=== PATIENT | female | born 1990 | race African-American/Black ===

== ENCOUNTER 2017-06-22 22:47 | Emergency (ER) | payer MEDICAID ==
[2017-06-22 23:12] VITALS: BP 146/86
[2017-06-23] MEDS ORDERED: HYDROXYZINE PAMOATE 50 MG CAPSULE PO ONE (00:30)
--- NOTE | 2017-06-23 00:37 | ER Document Report ---
ED General - General Chief Complaint: Anxiety Stated Complaint: SHORTNESS OF BREATH AND CHEST PAIN Time Seen by Provider: 06/22/17 23:41 TRAVEL OUTSIDE OF THE [place] IN LAST 30 DAYS: No - HPI Patient complains to provider of: Anxiety Notes: Patient states for the last month diagnosed with anxiety is followed up with primary care physician one time currently is not on any medication or she seen any therapy for it. Patient states more likely anxiety is probably stress induced. Patient states occurs random times tonight watch TV when she became short of breath achiness in her chest. Patient states similar to episodes before however symptoms little bit more intense. Patient denies any fever chills nausea vomiting diarrhea. Upon my evaluation patient is sitting very comfortably. Vital signs do look to be stable. Denies any other past medical history. - Related Data Allergies/Adverse Reactions: No Known Allergies Allergy (Unverified 06/22/17 23:12) Past Medical History - Social History Smoking Status: Unknown if Ever Smoked Family History: Reviewed & Not Pertinent Patient has suicidal ideation: No Patient has homicidal ideation: No Renal/ Medical History: Denies: Hx Peritoneal Dialysis Review of Systems - Review of Systems Constitutional: No symptoms reported EENT: No symptoms reported Cardiovascular: No symptoms reported Respiratory: No symptoms reported Gastrointestinal: No symptoms reported Genitourinary: No symptoms reported Female Genitourinary: No symptoms reported Musculoskeletal: No symptoms reported Skin: No symptoms reported Hematologic/Lymphatic: No symptoms reported Neurological/Psychological: Other - Anxiety -: Yes All other systems reviewed and negative Physical Exam - Vital signs Vitals: Temp Pulse Resp BP Pulse Ox 97.3 F 89 18 146/86 H 97 06/22/17 23:09 06/22/17 23:09 06/22/17 23:09 06/22/17 23:09 06/22/17 23:09 Interpretation: Normal - General General appearance: Appears well, Alert - HEENT Head: Normocephalic, Atraumatic Eyes: Normal Pupils: PERRL - Respiratory Respiratory status: No respiratory distress Chest status: Nontender Breath sounds: Normal Chest palpation: Normal - Cardiovascular Rhythm: Regular Heart sounds: Normal auscultation Murmur: No - Abdominal Inspection: Normal Distension: No distension Bowel sounds: Normal Tenderness: Nontender Organomegaly: No organomegaly - Back Back: Normal, Nontender - Extremities General upper extremity: Normal inspection, Nontender, Normal color, Normal ROM , Normal temperature General lower extremity: Normal inspection, Nontender, Normal color, Normal ROM , Normal temperature, Normal weight bearing. No: Eryn's sign - Neurological Neuro grossly intact: Yes Cognition: Normal Orientation: AAOx4 Bruno Coma Scale Eye Opening: Spontaneous [place] Coma Scale Verbal: Oriented [place] Coma Scale Motor: Obeys Commands Bruno Coma Scale Total: 15 Speech: Normal Motor strength normal: LUE, RUE, LLE, RLE Sensory: Normal - Psychological Associated symptoms: Normal affect, Normal mood - Skin Skin Temperature: Warm Skin Moisture: Dry Skin Color: Normal Course - Re-evaluation Re-evalutation: 06/23/17 01:46 Patient more likely suffering from anxiety. Patient states that he receives Xanax in the past. We will give the patient a dose of Vistaril prescription for Restoril encouraged patient follow-up with a local physicians 06/23/17 01:46 EKG shows normal sinus rhythm with no signs of any ST changes T-wave inversions - Vital Signs Vital signs: Temp Pulse Resp BP Pulse Ox 97.3 F 89 18 146/86 H 97 06/22/17 23:09 06/22/17 23:09 06/22/17 23:09 06/22/17 23:09 06/22/17 23:09 Discharge - Discharge Clinical Impression: Anxiety Condition: Good Disposition: HOME, SELF-CARE Instructions: Anxiety (OM) Additional Instructions: Take medication as prescribed. Please follow with your doctor Prescriptions: Hydroxyzine Pamoate [Vistaril 25 mg Capsule] 25 - 50 mg PO QHS #14 capsule
--- NOTE | 2017-06-23 07:50 | EKG REPORT ---
SEVERITY:- ABNORMAL ECG - SINUS RHYTHM FIRST DEGREE AV BLOCK : Confirmed by: Addi Fisher MD 23-Jun-2017 07:50:02
== END 2017-06-23 00:47 | disposition home or self-care (01) ==
LOC: ER 22:47
DX: F41.9 Anxiety disorder, unspecified (principal); R06.02 Shortness of breath; R07.9 Chest pain, unspecified
CPT/HCPCS: 93005; 93010; 99283